=== PATIENT | male | born 1995 | race Caucasian/White ===

== ENCOUNTER 2020-10-03 16:11 | Emergency (ER) | payer OTHER ==
[~2020-10-03] VITALS: Ht 198 cm; Wt 90.0 kg
[~2020-10-03 16:11] MED LIST: CLN.2T PO; OXCA300T4 PO; QUET100T33 PO; QUET200T PO
[2020-10-03 17:00] LABS: BASOPHILS # (AUTO) 0.1 10^3/uL (0.0-0.1); BASOPHILS % (AUTO) 1 % (0-10); EOSINOPHILS # (AUTO) 0.2 10^3/uL (0.0-0.3); EOSINOPHILS % (AUTO) 1 % (0-10); HEMATOCRIT 48 % (40-54); HEMOGLOBIN 16.1 g/dL (13.3-17.7); LYMPHOCYTES # (AUTO) 1.1 10^3/uL (1.0-4.0); LYMPHOCYTES % (AUTO) 9 % (12-44); MEAN CORPUSCULAR HEMOGLOBIN 30 pg (25-34); MEAN CORPUSCULAR HGB CONC 34 g/dL (32-36); MEAN CORPUSCULAR VOLUME 88 fL (80-99); MEAN PLATELET VOLUME 9.8 fL (9.0-12.2); MONOCYTES # (AUTO) 1.3 10^3/uL (0.0-1.0); MONOCYTES % (AUTO) 10 % (0-12); NEUTROPHILS % (AUTO) 79 % (42-75); PLATELET COUNT 192 10^3/uL (130-400); WHITE BLOOD COUNT 12.6 10^3/uL (4.3-11.0)
--- NOTE | 2020-10-03 17:00 | ED General ---
General Chief Complaint: Coughing Up Blood Stated Complaint: CP/COUGHING UP BLOOD/LETHARGIC Source of Information: Patient Exam Limitations: No Limitations History of Present Illness Date Seen by Provider: Oct 03, 2020 Time Seen by Provider: 16:30 Initial Comments To ER with chest pain when coughing, shortness of breath, hemoptysis. His chest pain only hurts when he coughs. 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 Timing/Duration: 1-2 Days Severity: Moderate Associated Systoms: Chest Pain, Cough Allergies and Home Medications Allergies Coded Allergies: No Known Drug Allergies (Unverified , 01/08/16) Home Medications Azithromycin 250 Mg Tablet, 250 MG PO UD TAKE 2 TABLETS ON DAY ONE THEN TAKE 1 TABLET DAILY FOR FOUR MORE DAYS Prescribed by: RAMONA ALANIS on 10/03/201739 Oxcarbazepine 300 Mg Tablet, 300 MG PO BID, (Reported) Prednisone 20 Mg Tab, 40 MG PO DAILY Prescribed by: RAMONA ALANIS on 10/03/201739 Quetiapine Fumarate 100 Mg Tablet, 100 MG PO BID, (Reported) Patient Home Medication List Home Medication List Reviewed: Yes Review of Systems Review of Systems Constitutional: see HPI EENTM: see HPI Respiratory: see HPI, cough, short of breath, wheezing Cardiovascular: no symptoms reported Genitourinary: no symptoms reported Musculoskeletal: no symptoms reported Skin: no symptoms reported Psychiatric/Neurological: No Symptoms Reported Hematologic/Lymphatic: No Symptoms Reported Past Zccqiln-Lyjsfh-Kwchoe Hx Patient Social History Recent Hopitalizations: No Seasonal Allergies Seasonal Allergies: No Past Medical History Reproductive Disorders: No Sexually Transmitted Disease: No ADD/ADHD, Bipolar Family Medical History No Pertinent Family Hx Physical Exam Vital Signs Vital Signs - First Documented 10/03/20 10/03/20 16:36 18:02 Temp 36.9 Pulse 97 Resp 22 B/P (MAP) 148/103 (118) Pulse Ox 96 O2 Delivery Room Air FiO2 21 Capillary Refill : Height, Weight, BMI Height: 5'10" Weight: 165lbs. oz. 74.000127at; BMI Method:Stated General Appearance: No Apparent Distress, WD/WN, Other (Oxygen saturation 93% room air. Some expiratory wheezing noted. Speaks in full sentences no respiratory distress or accessory muscle use noted.) Eyes: Bilateral Eye Normal Inspection, Bilateral Eye PERRL, Bilateral Eye EOMI Neck: Full Range of Motion, Normal Inspection Respiratory: No Accessory Muscle Use, No Respiratory Distress, Wheezing Cardiovascular: Regular Rate, Rhythm, Normal Peripheral Pulses Extremity: Normal Capillary Refill, Normal Inspection Neurologic/Psychiatric: Alert, Oriented x3 Skin: Normal Color, Warm/Dry Progress/Results/Core Measures Suspected Sepsis SIRS Temperature: Pulse: Respiratory Rate: Laboratory Tests 10/03/20 16:50: White Blood Count 12.6H Blood Pressure / Mean: Laboratory Tests 10/03/20 16:50: Creatinine 0.85, Platelet Count 192, Total Bilirubin 0.7 Results/Orders Lab Results Laboratory Tests Test 10/03/20 16:45 10/03/20 16:50 Range/Units Coronavirus 2019 (JEAN-PIERRE) Not Detected Not Detecte White Blood Count 12.6 H 4.3-11.0 10^3/uL Red Blood Count 5.46 4.30-5.52 10^6/uL Hemoglobin 16.1 13.3-17.7 g/dL Hematocrit 48 40-54 % Mean Corpuscular Volume 88 80-99 fL Mean Corpuscular Hemoglobin 30 25-34 pg Mean Corpuscular Hemoglobin Concent 34 32-36 g/dL Red Cell Distribution Width 13.2 10.0-14.5 % Platelet Count 192 130-400 10^3/uL Mean Platelet Volume 9.8 9.0-12.2 fL Immature Granulocyte % (Auto) 0 % Neutrophils (%) (Auto) 79 H 42-75 % Lymphocytes (%) (Auto) 9 L 12-44 % Monocytes (%) (Auto) 10 0-12 % Eosinophils (%) (Auto) 1 0-10 % Basophils (%) (Auto) 1 0-10 % Neutrophils # (Auto) 10.0 H 1.8-7.8 10^3/uL Lymphocytes # (Auto) 1.1 1.0-4.0 10^3/uL Monocytes # (Auto) 1.3 H 0.0-1.0 10^3/uL Eosinophils # (Auto) 0.2 0.0-0.3 10^3/uL Basophils # (Auto) 0.1 0.0-0.1 10^3/uL Immature Granulocyte # (Auto) 0.0 0.0-0.1 10^3/uL D-Dimer < 0.27 0.00-0.49 UG/ML Sodium Level 138 135-145 MMOL/L Potassium Level 3.7 3.6-5.0 MMOL/L Chloride Level 104 98-107 MMOL/L Carbon Dioxide Level 26 21-32 MMOL/L Anion Gap 8 5-14 MMOL/L Blood Urea Nitrogen 11 7-18 MG/DL Creatinine 0.85 0.60-1.30 MG/DL Estimat Glomerular Filtration Rate > 60 BUN/Creatinine Ratio 13 Glucose Level 88 70-105 MG/DL Calcium Level 8.8 8.5-10.1 MG/DL Corrected Calcium 8.4 L 8.5-10.1 MG/DL Total Bilirubin 0.7 0.1-1.0 MG/DL Aspartate Amino Transf (AST/SGOT) 20 5-34 U/L Alanine Aminotransferase (ALT/SGPT) 19 0-55 U/L Alkaline Phosphatase 83 40-136 U/L Troponin I < 0.028 <0.028 NG/ML Total Protein 7.5 6.4-8.2 GM/DL Albumin 4.5 3.2-4.5 GM/DL Procalcitonin 0.03 <0.10 NG/ML My Orders Orders - RAMONA ALANIS APRN Cbc With Automated Diff (10/03/20 16:38) Comprehensive Metabolic Panel (10/03/20 16:38) Procalcitonin (Pct) (10/03/20 16:38) Fibrin Degradation Products (10/03/20 16:38) Troponin I (10/03/20 16:38) Ekg Tracing (10/03/20 16:38) Chest 1 View, Ap/Pa Only (10/03/20 16:38) Covid 19 Inhouse Test (10/03/20 16:38) Albuterol/Ipra Inhalation Soln (Duoneb I (10/03/20 18:00) Svn Small Volume Nebulizer (10/03/20 17:51) Albuterol Inhaler (Ventolin Hfa) (10/03/20 18:00) Rx-Albuterol Inhaler (Rx-Ventolin Hfa) (10/03/20 17:59) Vital Signs/I&O 10/03/20 10/03/20 10/03/20 16:36 16:36 18:02 Temp 36.9 Pulse 97 Resp 22 B/P (MAP) 148/103 (118) Pulse Ox 96 96 O2 Delivery Room Air Room Air Room Air FiO2 21 Capillary Refill : Departure Communication (Admissions) 1815-much better air movement with no wheezing after a DuoNeb treatment. Impression Primary Impression: Bronchitis Disposition: 01 HOME, SELF-CARE Condition: Stable Departure-Patient Inst. Decision time for Depature: 17:39 Referrals: [facility] (PCP/Family) Primary Care Physician Patient Instructions: Bronchitis, Adult ED Add. Discharge Instructions: 1. Return to ER for any concerns. Medication as directed. All discharge instructions reviewed with patient and/or family. Voiced und erstanding. Scripts Azithromycin (Azithromycin) 250 Mg Tablet 250 MG PO UD, #6 TAB TAKE 2 TABLETS ON DAY ONE THEN TAKE 1 TABLET DAILY FOR FOUR MORE DAYS Prov: RAMONA ALANIS APRN 10/03/20 Prednisone (Prednisone) 20 Mg Tab 40 MG PO DAILY, #6 TAB 0 Refills Prov: RAMONA ALANIS APRN 10/03/20 RAMONA ALANIS APRN Oct 03, 2020 17:00
[2020-10-03 17:28] LABS: ALANINE AMINOTRANSFERASE 19 U/L (0-55); ALBUMIN 4.5 GM/DL (3.2-4.5); ALKALINE PHOSPHATASE 83 U/L (40-136); BILIRUBIN,TOTAL 0.7 MG/DL (0.1-1.0); BUN/CREATININE RATIO 13; CALCIUM 8.8 MG/DL (8.5-10.1); CARBON DIOXIDE 26 MMOL/L (21-32); CHLORIDE 104 MMOL/L (98-107); CREATININE SERUM 0.85 MG/DL (0.60-1.30); GFR ESTIMATED > 60; GLUCOSE 88 MG/DL (70-105); POTASSIUM 3.7 MMOL/L (3.6-5.0); SODIUM 138 MMOL/L (135-145); TOTAL PROTEIN 7.5 GM/DL (6.4-8.2)
[2020-10-03] MEDS ORDERED: AZIT250T12 PO (17:40)
[2020-10-03] MEDS ORDERED: PRD20T PO (17:40)
--- NOTE | 2020-10-03 17:43 | Diagnostic Imaging Report ---
INDICATION: Productive cough. Chest pain with coughing. EXAMINATION: Single view chest 10/03/2020. COMPARISON: 01/08/2016. FINDINGS: The cardiomediastinal silhouette is unremarkable. The pulmonary vasculature is within normal limits. The lungs and pleural spaces are clear. IMPRESSION: No evidence of an acute cardiopulmonary process. Dictated by: Dictated on workstation # [id number]
[2020-10-03] MEDS ORDERED: RX-ALBUTEROL INHALER (VENTOLIN HFA) 18 GM IH STA (17:59)
[2020-10-03] MEDS ORDERED: RT-ALBUTEROL INHALER HFA (VENTOLIN HFA) 18 GM IH SCH (18:00)
[2020-10-03] MEDS ORDERED: RT-ALBUTEROL/IPRATROPIUM 3 ML (DUONEB) VIAL INH ONE (18:00)
[2020-10-03 18:17] VITALS: BP 134/89
== END 2020-10-03 18:17 | disposition home or self-care (01) ==
LOC: EDUNIT# 16:11 → ER 16:13
DX: J40 Bronchitis, not specified as acute or chronic (principal); F31.9 Bipolar disorder, unspecified; Z20.822 Contact with and (suspected) exposure to COVID-19; Z79.52 Long term (current) use of systemic steroids; Z79.899 Other long term (current) drug therapy
CPT/HCPCS: 71045; 80053; 84145; 84484; 85025; 85379; 93005; 94640; 99283; U0002; 36415; 87635

== ENCOUNTER 2020-11-18 12:08 | Emergency (ER) | payer SELFPAY ==
[~2020-11-18] VITALS: Ht 182 cm; Wt 94.5 kg
[~2020-11-18 12:08] MED LIST changes: +AZIT250T12 PO; +PRD20T PO
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
[2020-11-18 13:58] LABS: BASOPHILS % (AUTO) 1 % (0-10); EOSINOPHILS % (AUTO) 1 % (0-10); HEMATOCRIT 48 % (40-54); HEMOGLOBIN 16.5 g/dL (13.3-17.7); LYMPHOCYTES # (AUTO) 1.1 10^3/uL (1.0-4.0); LYMPHOCYTES % (AUTO) 32 % (12-44); MEAN CORPUSCULAR HEMOGLOBIN 29 pg (25-34); MEAN CORPUSCULAR HGB CONC 35 g/dL (32-36); MEAN CORPUSCULAR VOLUME 85 fL (80-99); MONOCYTES # (AUTO) 0.4 10^3/uL (0.0-1.0); MONOCYTES % (AUTO) 12 % (0-12); NEUTROPHILS # (AUTO) 1.9 10^3/uL (1.8-7.8); NEUTROPHILS % (AUTO) 54 % (42-75); PLATELET COUNT 151 10^3/uL (130-400); WHITE BLOOD COUNT 3.5 10^3/uL (4.3-11.0)
[2020-11-18] MEDS ORDERED: IOHEXOL 350 MG/ML 100 ML (OMNIPAQUE 350) VIAL IV ONE (14:00)
[2020-11-18] MEDS ORDERED: HOLD METFORMIN - RECEIVED CONTRAST 20 ML VIAL IV SCH (14:00)
[2020-11-18] MEDS ORDERED: NS 100 ML (IVPB) BAG IV ONE (14:00)
[2020-11-18] MEDS ORDERED: CATHETER FLUSH 10 ML SYR IV PRN (14:00)
[2020-11-18 14:11] LABS: ALBUMIN 4.1 GM/DL (3.2-4.5); CHLORIDE 105 MMOL/L (98-107); POTASSIUM 3.9 MMOL/L (3.6-5.0); SODIUM 139 MMOL/L (135-145)
[2020-11-18 14:12] LABS: CALCIUM 8.7 MG/DL (8.5-10.1)
[2020-11-18 14:13] LABS: GLUCOSE 90 MG/DL (70-105)
[2020-11-18 14:14] LABS: TOTAL PROTEIN 6.6 GM/DL (6.4-8.2)
[2020-11-18 14:15] LABS: BILIRUBIN,TOTAL 0.3 MG/DL (0.1-1.0); CARBON DIOXIDE 24 MMOL/L (21-32)
[2020-11-18 14:17] LABS: ALKALINE PHOSPHATASE 93 U/L (40-136); CREATININE SERUM 0.77 MG/DL (0.60-1.30); GFR ESTIMATED > 60
[2020-11-18 14:18] LABS: BUN/CREATININE RATIO 12
[2020-11-18 14:20] LABS: ALANINE AMINOTRANSFERASE 13 U/L (0-55)
--- NOTE | 2020-11-18 14:34 | Diagnostic Imaging Report ---
INDICATION: Right-sided chest wall pain PA chest and 3 views of the right ribs are obtained. There are are no displaced rib fractures seen. There is no effusion or pneumothorax. IMPRESSION: Unremarkable chest and right ribs. Dictated by: Dictated on workstation # [id number]
--- NOTE | 2020-11-18 14:39 | Diagnostic Imaging Report ---
PROCEDURE: CT abdomen and pelvis with contrast. TECHNIQUE: Multiple contiguous axial images were obtained through the abdomen and pelvis after administration of intravenous contrast. Auto Exposure Controls were utilized during the CT exam to meet ALARA standards for radiation dose reduction. All CT scans use one or more of the following dose optimizing techniques: automated exposure control, MA and/or KvP adjustment based on patient size and exam type or iterative reconstruction. INDICATION: Upper abdominal pain. Chest pain. Vomiting. COMPARISON: None. FINDINGS: Included portions of the lung bases are clear. CT ABDOMEN: Small bowel loops are nondistended. Normal appendix is identified. Moderate air and stool is present scattered throughout the colon. The kidneys, adrenal glands, spleen, pancreas, and liver have a normal CT appearance. There is no loculated fluid collection, free fluid, or free air within the abdomen. No abnormal mesenteric or retroperitoneal adenopathy is identified. Osseous structures show no acute abnormalities. CT PELVIS: Urinary bladder is unopacified and nondistended. No calculi are seen within the urinary bladder. There is no loculated fluid collection, free fluid, or free air within the pelvis. No abnormal lymph nodes are seen. Osseous structures show no acute abnormalities. IMPRESSION: 1. No acute abnormalities are seen within the abdomen or pelvis. 2. Moderate colonic air and stool. Please correlate for constipation. Dictated by: Dictated on workstation # [id number]
[2020-11-18] MEDS ORDERED: PRD20T PO (14:50)
[2020-11-18 14:58] VITALS: BP 126/81
== END 2020-11-18 15:00 | disposition home or self-care (01) ==
LOC: EDUNIT# 12:08 → ER 12:11
DX: R07.1 Chest pain on breathing (principal); F31.9 Bipolar disorder, unspecified; F17.210 Nicotine dependence, cigarettes, uncomplicated; Z79.52 Long term (current) use of systemic steroids; Z79.899 Other long term (current) drug therapy
CPT/HCPCS: 36415; 71101; 74177; 80053; 85025